=== PATIENT | male | born 1975 ===

== ENCOUNTER 2017-04-20 16:05 | Observation (INO) | payer OTHER ==
[2017-04-20] MEDS ORDERED: Nitroglycerin 2% Ointment Foilpak UD TOP STA (16:50)
[2017-04-20] MEDS ORDERED: Aspirin 325 mg EC Tablets PO STA (16:50)
--- NOTE | 2017-04-20 16:56 | C.PDOC ---
History Of Present Illness 41 year old male with no PMHx presents to the ER with a complaint of intermittent chest pressure for 1 week. Patient reports he had chest pressure today with dizziness, he went to the pharmacy where he checked his blood pressure; the pharmacist saw it was elevated and advised patient to see his doctor which prompted ER visit. Denies SOB, nausea, vomiting, or other associated symptoms. Time Seen by Provider: 04/20/17 16:43 Chief Complaint (Nursing): Chest Pain History Per: Patient History/Exam Limitations: no limitations Onset/Duration Of Symptoms: Days, Intermittent Episodes Current Symptoms Are (Timing): Still Present Quality: Pressure Associated Symptoms: denies: Nausea, Dyspnea, Diaphoresis, Syncope Modifying Factors: None Exacerbating Factors: None Alleviating Factors: Rest Recent travel outside of the [place]: No Past Medical History Reviewed: Historical Data, Nursing Documentation, Vital Signs Vital Signs: Last Vital Signs Temp 99.5 F 04/20/17 16:18 Pulse 70 04/20/17 17:44 Resp 12 04/20/17 17:44 BP 112/70 04/20/17 17:44 Pulse Ox 99 04/20/17 18:08 - Medical History PMH: No Chronic Diseases Surgical History: No Surg Hx Family History: States: Unknown Family Hx - Social History Hx Alcohol Use: No Hx Substance Use: No - Immunization History Hx Tetanus Toxoid Vaccination: No Hx Influenza Vaccination: No Hx Pneumococcal Vaccination: No Review Of Systems Except As Marked, All Systems Reviewed And Found Negative. Constitutional: Negative for: Fever, Chills Cardiovascular: Positive for: Chest Pain. Negative for: Palpitations Respiratory: Negative for: Shortness of Breath Gastrointestinal: Negative for: Nausea, Vomiting Musculoskeletal: Negative for: Neck Pain, Arm Pain Neurological: Negative for: Weakness, Numbness Physical Exam - Physical Exam Appears: Non-toxic, No Acute Distress Skin: Normal Color, Warm, Dry Head: Atraumatic, Normacephalic Oral Mucosa: Moist Chest: Symmetrical, No Tenderness Cardiovascular: Rhythm Regular, Other (BP 135/70) Respiratory: Normal Breath Sounds, No Accessory Muscle Use Gastrointestinal/Abdominal: Soft, No Tenderness Neurological/Psych: Oriented x3, Normal Speech, Normal Cognition ED Course And Treatment - Laboratory Results Result Diagrams: 04/20/17 17:00 04/20/17 17:00 ECG: Interpreted By Me, Viewed By Me ECG Rhythm: Sinus Rhythm ECG Interpretation: Normal Rate From EC O2 Sat by Pulse Oximetry: 99 (Room air) Pulse Ox Interpretation: Normal - Radiology CXR: Interpreted by Me CXR Interpretation: Yes: No Acute Disease Reevaluation Time: 17:59 Reassessment Condition: Improved (FEELS BETTER SP NG. VSS) - Physician Consult Information Time Consulting Physician Contacted: 17:59 Physician Contacted: Radha Hodges Progress - Re-Evaluation Re-evaluation Note: 04/20/17 18:06 PT NOW STATES DOES NOT WISH ADMISSION. @ BEDSIDE. RISKS/BENEFITS EXPLAINED. PT VERBALIZES UNDERSTANDING OF RISKS OF LEAVING INCLUDING DISABILITY , DETERIORATION AND . PT AND FAMILY WISHES AMA. 04/20/17 18:15 PT NOW WISHES ADMISSION. - Data Reviewed Data Reviewed: Lab, Diagnostic imaging, EKG, Old records Medical Decision Making Medical Decision Making: Plan: * EKG * Blood work * CXR * Aspirin * Nitro-bid * Tylenol Disposition Counseled Patient/Family Regarding: Studies Performed, Diagnosis - Disposition Disposition: HOSPITALIZED Disposition Time: 18:15 Condition: STABLE Additional Instructions: YOU HAVE BEEN OFFERED FOR ADMISSION FOR WORSENING CHEST PAIN. YOU HAVE EXPRESSED UNDERSTANDING OF THE RISKS OF LEAVING INCLUDING DISABILITY, DETERIORATION AND . SEE YOUR PMD MAC. Instructions: Chest Pain (ED), Against Medical Advice (ED) Forms: [facility] (Georgian) - POA Present On Arrival: None - Clinical Impression Clinical Impression: Chest pain - Scribe Statement The provider has reviewed the documentation as recorded by the Scribe Erik Austin All medical record entries made by the Scribe were at my direction and personally dictated by me. I have reviewed the chart and agree that the record accurately reflects my personal performance of the history, physical exam, medical decision making, and the department course for this patient. I have also personally directed, reviewed, and agree with the discharge instructions and disposition. Decision To Admit - Pt Status Changed To: Hospital Disposition Of: Observation - . Bed Request Type: Telemetry Admitting Physician: Radha Hodges Patient Diagnosis: Chest pain
[2017-04-20] MEDS ORDERED: Nitroglycerin 2% Ointment Foilpak UD TOP ONE (17:03)
[2017-04-20 17:07] LABS: EOS % 0.6 % (0.0-4.0); HEMATOCRIT 43.1 % (35.0-51.0); LYMPH # 1.7 K/uL (1.0-4.3); LYMPH % 43.8 % (20.0-40.0); MEAN CELL VOLUME 85.6 fL (80.0-94.0); MEAN CORPUSCULAR HEMOGLOBIN 28.8 pg (27.0-31.0); MEAN CORPUSCULAR HGB CONC 33.6 g/dL (33.0-37.0); MEAN PLATELET VOLUME 9.5 fL (7.2-11.7); MONO # 0.3 K/uL (0.0-0.8); MONO % 6.6 % (0.0-10.0); NRBC % 0.1 % (0.0-2.0); RED CELL DISTRIBUTION WIDTH 13.1 % (11.5-14.5); WHITE BLOOD COUNT 3.8 K/uL (4.8-10.8)
[2017-04-20 17:16] LABS: CHLORIDE 95 mmol/L (98-107)
[2017-04-20 17:17] LABS: POTASSIUM 4.3 mmol/L (3.6-5.2); SODIUM 135 mmol/L (132-148)
--- NOTE | 2017-04-20 17:18 | RAD ---
HISTORY: chest pain COMPARISON: None available. TECHNIQUE: Chest PA and lateral FINDINGS: LUNGS: No focal consolidation. Please note that chest x-ray has limited sensitivity for the detection of pulmonary masses. PLEURA: No significant pleural effusion identified. No definite pneumothorax . CARDIOVASCULAR: Heart size appears within normal limits. OSSEOUS STRUCTURES: No acute osseous abnormality identified. VISUALIZED UPPER ABDOMEN: Unremarkable. OTHER FINDINGS: None. IMPRESSION: No focal consolidation, significant pleural effusion, or definite pneumothorax identified.
[2017-04-20 17:19] LABS: ALB/GLOB RATIO 1.3 (1.0-2.1); AST/SGOT 25 U/L (17-59); BILIRUBIN,TOTAL 0.6 mg/dL (0.2-1.3); CARBON DIOXIDE 29 mmol/L (22-30); GFR AFRICAN-AMERICAN > 60; TOTAL PROTEIN 7.9 g/dL (6.3-8.3)
[2017-04-20 17:20] LABS: ALKALINE PHOSPHATASE 41 U/L (38-126); ALT/SGPT 30 U/L (21-72); BLOOD UREA NITROGEN 13 mg/dL (9-20); CALCIUM 9.2 mg/dl (8.6-10.4); GLUCOSE,RANDOM 91 mg/dL (75-110)
--- NOTE | 2017-04-20 18:50 | CP.PCM.HP ---
<Kevin Lopes - Last Filed: 04/20/17 18:43> History of Present Illness - History of Present Illness History of Present Illness: CC: chest pain HPI: 41M PMHx possible anxiety presented with chest pain. 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 Pt also has associated lightheadedness and pain not associated with food. Pt said he went to a pharmacy and was told by the pharmacist that his pressure is high and should see a doctor. Pt said he frequently makes 14+ hour drive trips without rest. Pt said resting makes the pain better and cannot really identify a trigger. Pt said he has anxiety attacks and last happened 3 years ago but does not take anything. Currently denies chest pain, SOB, palpitations, headache, lightheadedness, n/v, constipation, diarrhea. NKDA PMHx: possible anxiety attacks PSHx: none FMHx: reviewed and not contributory Social: denied ETOH, drugs or tobacco. Present on Admission - Present on Admission Any Indicators Present on Admission: No Review of Systems - Constitutional Constitutional: absent: Anorexia, Headache, Weakness - EENT Eyes: absent: Change in Vision - Cardiovascular Cardiovascular: Chest Pain, Chest Pain with Activity. absent: Dyspnea, Leg Edema, Leg Ulcers - Respiratory Respiratory: absent: Cough, Dyspnea - Gastrointestinal Gastrointestinal: absent: Abdominal Pain, Constipation, Diarrhea, Nausea, Vomiting - Genitourinary Genitourinary: absent: Dysuria, Pyuria - Musculoskeletal Musculoskeletal: absent: Back Pain, Joint Swelling - Integumentary Integumentary: absent: New Lesions Past Patient History - Past Social History Smoking Status: Never Smoked - PSYCHIATRIC Hx Substance Use: No - SURGICAL HISTORY Hx Surgeries: No - ANESTHESIA Hx Anesthesia: No Meds Allergies/Adverse Reactions: Allergies Allergy/AdvReac Type Severity Reaction Status Date / Time No Known Allergies Allergy Verified 04/20/17 16:26 Physical Exam - Constitutional Appears: Non-toxic, No Acute Distress - Head Exam Head Exam: NORMAL INSPECTION, NORMOCEPHALIC - Eye Exam Eye Exam: Normal appearance Pupil Exam: NORMAL ACCOMODATION - ENT Exam ENT Exam: Mucous Membranes Moist - Respiratory Exam Respiratory Exam: Clear to Auscultation Bilateral, NORMAL BREATHING PATTERN. absent: Rhonchi, Wheezes - Cardiovascular Exam Cardiovascular Exam: REGULAR RHYTHM, +S1, +S2. absent: Gallop, Rubs - GI/Abdominal Exam GI & Abdominal Exam: Normal Bowel Sounds, Soft. absent: Tenderness - Extremities Exam Extremities exam: Negative for: pedal edema - Neurological Exam Neurological exam: Alert, Oriented x3 - Psychiatric Exam Psychiatric exam: Normal Mood - Skin Skin Exam: Intact Results - Vital Signs Recent Vital Signs: Last Vital Signs Temp 99.5 F 04/20/17 16:18 Pulse 70 04/20/17 17:44 Resp 12 04/20/17 17:44 BP 112/70 04/20/17 17:44 Pulse Ox 99 04/20/17 18:15 - Labs Result Diagrams: 04/20/17 17:00 04/20/17 17:00 Labs: Laboratory Results - last 24 hr 04/20/17 04/20/17 17:00 17:00 WBC 3.8 L RBC 5.04 Hgb 14.5 Hct 43.1 MCV 85.6 MCH 28.8 MCHC 33.6 RDW 13.1 Plt Count 182 MPV 9.5 Neut % (Auto) 48.0 L Lymph % (Auto) 43.8 H Ward % (Auto) 6.6 Eos % (Auto) 0.6 Baso % (Auto) 1.0 Neut # 1.8 Lymph # 1.7 Ward # 0.3 Eos # 0.0 Baso # 0.0 Sodium 135 Potassium 4.3 Chloride 95 L Carbon Dioxide 29 Anion Gap 15 BUN 13 Creatinine 0.9 Est GFR ( Amer) > 60 Est GFR (Non-Af Amer) > 60 Random Glucose 91 Calcium 9.2 Total Bilirubin 0.6 AST 25 ALT 30 Alkaline Phosphatase 41 Troponin I < 0.0120 Total Protein 7.9 Albumin 4.5 Globulin 3.4 Albumin/Globulin Ratio 1.3 Assessment & Plan - Assessment and Plan (Free Text) Assessment: Chest pain Admit to tele. EKG showed NSR @ 99 bpm. First troponin negative. ASA 81mg PO daily. Toradol PRN for moderate pain. F/U SESAR x2. F/U D dimer, will obtain CT angio if positive. F/U TSH. F/U A1c. F/U lipid panel. F/U UDS. Prophylactic measure Pepcid, Lovenox. <Radha Hodges V - Last Filed: 04/20/17 22:38> Results - Vital Signs Recent Vital Signs: Last Vital Signs Temp 98.0 F 04/20/17 19:39 Pulse 80 04/20/17 19:39 Resp 18 04/20/17 19:39 BP 116/77 04/20/17 19:39 Pulse Ox 98 04/20/17 19:39 - Labs Result Diagrams: 04/20/17 17:00 04/20/17 17:00 Labs: Laboratory Results - last 24 hr 04/20/17 04/20/17 04/20/17 17:00 17:00 17:00 WBC 3.8 L RBC 5.04 Hgb 14.5 Hct 43.1 MCV 85.6 MCH 28.8 MCHC 33.6 RDW 13.1 Plt Count 182 MPV 9.5 Neut % (Auto) 48.0 L Lymph % (Auto) 43.8 H Ward % (Auto) 6.6 Eos % (Auto) 0.6 Baso % (Auto) 1.0 Neut # 1.8 Lymph # 1.7 Ward # 0.3 Eos # 0.0 Baso # 0.0 D-Dimer, Quantitative Sodium 135 Potassium 4.3 Chloride 95 L Carbon Dioxide 29 Anion Gap 15 BUN 13 Creatinine 0.9 Est GFR ( Amer) > 60 Est GFR (Non-Af Amer) > 60 Random Glucose 91 Calcium 9.2 Total Bilirubin 0.6 AST 25 ALT 30 Alkaline Phosphatase 41 Troponin I < 0.0120 NT-Pro-B Natriuret Pep 14.1 Total Protein 7.9 Albumin 4.5 Globulin 3.4 Albumin/Globulin Ratio 1.3 Triglycerides 133 Cholesterol 199 LDL Cholesterol Direct 143 H HDL Cholesterol 35 TSH 3rd Generation 0.97 04/20/17 20:02 WBC RBC Hgb Hct MCV MCH MCHC RDW Plt Count MPV Neut % (Auto) Lymph % (Auto) Ward % (Auto) Eos % (Auto) Baso % (Auto) Neut # Lymph # Ward # Eos # Baso # D-Dimer, Quantitative < 200 Sodium Potassium Chloride Carbon Dioxide Anion Gap BUN Creatinine Est GFR ( Amer) Est GFR (Non-Af Amer) Random Glucose Calcium Total Bilirubin AST ALT Alkaline Phosphatase Troponin I NT-Pro-B Natriuret Pep Total Protein Albumin Globulin Albumin/Globulin Ratio Triglycerides Cholesterol LDL Cholesterol Direct HDL Cholesterol TSH 3rd Generation Attending/Attestation - Attestation I have personally seen and examined this patient.: Yes I have fully participated in the care of the patient.: Yes I have reviewed all pertinent clinical information: Yes Notes (Text): Patient seen, examined, and case discussed with day-time resident. patient seen, examined, in [facility] Bed 1 on 04/20/17 at approximately 6:15PM. Patient hesitant on staying because he has no insurance; however patient with understands if he has chest pain, he recommended to be evaluated by a doctor and patient understands risk and benefits of leaving against medical advice but opts to stay in the hospital. Patient reporting chest pain daily for the past week. Patient denies prior cardiac history and denies cardiac risk factors. 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 patient denies caffeine use. patient denies drug use. Patient reports history of panic attacks. Assessment/Plan 1) Chest pain * Observe to tele. * EKG showed NSR @ 99 bpm. * First troponin negative. * ASA 81mg PO daily. * Toradol PRN for moderate pain. * F/U SESAR x2, Q 6hours and EKGs * F/U D dimer, will obtain CT angio if positive. * F/U TSH. * F/U A1c. * F/U lipid panel. * F/U UDS * echocardiogram ordered 2) Prophylactic measure * Pepcid 20mg PO bid for GI ppx * Lovenox 40mg subq daily for DVT ppx.
[2017-04-20 20:50] LABS: THYROID STIMULATING HORMONE 0.97 mIU/L (0.46-4.68)
[2017-04-21 01:30] VITALS: RESP 20
[2017-04-21 04:40] VITALS: O2SAT 97
[2017-04-21 08:22] LABS: BASO % 0.2 % (0.0-2.0); EOS % 1.1 % (0.0-4.0); HEMATOCRIT 41.5 % (35.0-51.0); LYMPH # 2.5 K/uL (1.0-4.3); LYMPH % 56.9 % (20.0-40.0); MEAN CELL VOLUME 85.2 fL (80.0-94.0); MEAN CORPUSCULAR HEMOGLOBIN 28.6 pg (27.0-31.0); MEAN CORPUSCULAR HGB CONC 33.5 g/dL (33.0-37.0); MEAN PLATELET VOLUME 9.6 fL (7.2-11.7); MONO # 0.3 K/uL (0.0-0.8); MONO % 7.3 % (0.0-10.0); NRBC % 0.1 % (0.0-2.0); WHITE BLOOD COUNT 4.4 K/uL (4.8-10.8)
[2017-04-21 08:26] VITALS: BP 114/76; PULSE 61; TEMP 98
[2017-04-21 08:33] LABS: CHLORIDE 100 mmol/L (98-107); POTASSIUM 4.2 mmol/L (3.6-5.2); SODIUM 134 mmol/L (132-148)
[2017-04-21 08:35] LABS: ALB/GLOB RATIO 1.2 (1.0-2.1); ALKALINE PHOSPHATASE 37 U/L (38-126); AST/SGOT 22 U/L (17-59); BILIRUBIN,TOTAL 0.6 mg/dL (0.2-1.3); BLOOD UREA NITROGEN 14 mg/dL (9-20); CARBON DIOXIDE 24 mmol/L (22-30); CHOLESTEROL 178 mg/dL (0-199); GFR AFRICAN-AMERICAN > 60
[2017-04-21 08:36] LABS: ALT/SGPT 30 U/L (21-72); CALCIUM 8.7 mg/dl (8.6-10.4); GLUCOSE,RANDOM 88 mg/dL (75-110)
[2017-04-21 09:13] LABS: THYROID STIMULATING HORMONE 1.27 mIU/L (0.46-4.68)
[2017-04-21] MEDS ORDERED: Enoxaparin 40 mg Syringe SC SCH (10:00)
--- NOTE | 2017-04-21 14:08 | CP.PCM.DIS ---
<Maya Marie - Last Filed: 04/21/17 14:04> Provider - Provider Date of Admission: 04/20/17 18:14 Attending physician: Radha Hodges DO Time Spent in preparation of Discharge (in minutes): 55 Hospital Course - Lab Results Lab Results: Most Recent Lab Values WBC 4.4 K/uL (4.8-10.8) L 04/21/17 08:10 RBC 4.87 Mil/uL (4.40-5.90) 04/21/17 08:10 Hgb 13.9 g/dL (12.0-18.0) 04/21/17 08:10 Hct 41.5 % (35.0-51.0) 04/21/17 08:10 MCV 85.2 fL (80.0-94.0) 04/21/17 08:10 MCH 28.6 pg (27.0-31.0) 04/21/17 08:10 MCHC 33.5 g/dL (33.0-37.0) 04/21/17 08:10 RDW 13.0 % (11.5-14.5) 04/21/17 08:10 Plt Count 166 K/uL (130-400) 04/21/17 08:10 MPV 9.6 fL (7.2-11.7) 04/21/17 08:10 Neut % (Auto) 34.5 % (50.0-75.0) L 04/21/17 08:10 Lymph % (Auto) 56.9 % (20.0-40.0) H 04/21/17 08:10 [place] % (Auto) 7.3 % (0.0-10.0) 04/21/17 08:10 Eos % (Auto) 1.1 % (0.0-4.0) 04/21/17 08:10 Baso % (Auto) 0.2 % (0.0-2.0) 04/21/17 08:10 Neut # 1.5 K/uL (1.8-7.0) L 04/21/17 08:10 Lymph # 2.5 K/uL (1.0-4.3) 04/21/17 08:10 [place] # 0.3 K/uL (0.0-0.8) 04/21/17 08:10 Eos # 0.0 K/uL (0.0-0.7) 04/21/17 08:10 Baso # 0.0 K/uL (0.0-0.2) 04/21/17 08:10 D-Dimer, Quantitative < 200 ng/mlDDU (0-243) 04/20/17 20:02 Sodium 134 mmol/L (132-148) 04/21/17 08:10 Potassium 4.2 mmol/L (3.6-5.2) 04/21/17 08:10 Chloride 100 mmol/L (98-107) 04/21/17 08:10 Carbon Dioxide 24 mmol/L (22-30) 04/21/17 08:10 Anion Gap 15 (10-20) 04/21/17 08:10 BUN 14 mg/dL (9-20) 04/21/17 08:10 Creatinine 0.9 mg/dL (0.8-1.5) 04/21/17 08:10 Est GFR ( Amer) > 60 04/21/17 08:10 Est GFR (Non-Af Amer) > 60 04/21/17 08:10 Random Glucose 88 mg/dL (75-110) 04/21/17 08:10 Hemoglobin A1c 5.8 % (4.2-6.5) 04/20/17 20:02 Calcium 8.7 mg/dl (8.6-10.4) 04/21/17 08:10 Total Bilirubin 0.6 mg/dL (0.2-1.3) 04/21/17 08:10 AST 22 U/L (17-59) 04/21/17 08:10 ALT 30 U/L (21-72) 04/21/17 08:10 Alkaline Phosphatase 37 U/L (38-126) L 04/21/17 08:10 Total Creatine Kinase 75 U/L (55-170) 04/21/17 08:10 CK-MB (Mass) 0.45 ng/mL (0.0-3.38) 04/21/17 08:10 Troponin I < 0.0120 ng/mL (0.00-0.120) 04/20/17 17:00 Troponin I, Quant < 0.0120 ng/mL (0.00-0.120) 04/21/17 08:10 NT-Pro-B Natriuret Pep 14.1 pg/mL (0-450) 04/20/17 17:00 Total Protein 7.0 g/dL (6.3-8.3) 04/21/17 08:10 Albumin 3.9 g/dL (3.5-5.0) 04/21/17 08:10 Globulin 3.1 gm/dL (2.2-3.9) 04/21/17 08:10 Albumin/Globulin Ratio 1.2 (1.0-2.1) 04/21/17 08:10 Triglycerides 127 mg/dL (0-149) 04/21/17 08:10 Cholesterol 178 mg/dL (0-199) 04/21/17 08:10 LDL Cholesterol Direct 131 mg/dL (0-129) H 04/21/17 08:10 HDL Cholesterol 30 mg/dL (30-70) 04/21/17 08:10 Free T4 0.86 ng/dL (0.78-2.19) 04/21/17 08:10 TSH 3rd Generation 1.27 mIU/L (0.46-4.68) 04/21/17 08:10 Urine Opiates Screen Negative (NEGATIVE) 04/21/17 07:24 Urine Methadone Screen Negative (NEGATIVE) 04/21/17 07:24 Ur Barbiturates Screen Negative (NEGATIVE) 04/21/17 07:24 Ur Phencyclidine Scrn Negative (NEGATIVE) 04/21/17 07:24 Ur Amphetamines Screen Negative (NEGATIVE) 04/21/17 07:24 U Benzodiazepines Scrn Negative (NEGATIVE) 04/21/17 07:24 U Oth Cocaine Metabols Negative (NEGATIVE) 04/21/17 07:24 U Cannabinoids Screen Negative (NEGATIVE) 04/21/17 07:24 - Hospital Course Hospital Course: Upon Admission: CC: chest pain HPI: 41M PMHx possible anxiety presented with chest pain. 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 Pt also has associated lightheadedness and pain not associated with food. Pt said he went to a pharmacy and was told by the pharmacist that his pressure is high and should see a doctor. Pt said he frequently makes 14+ hour drive trips without rest. Pt said resting makes the pain better and cannot really identify a trigger. Pt said he has anxiety attacks and last happened 3 years ago but does not take anything. Currently denies chest pain, SOB, palpitations, headache, lightheadedness, n/v, constipation, diarrhea. NKDA PMHx: possible anxiety attacks PSHx: none FMHx: reviewed and not contributory Social: denied ETOH, drugs or tobacco. Throughout Hospital Course: Patient was admitted for chest pain. All cardiac worked up was negative, EKGs were normal, all labwork was WNL, except his HGA1C which was 5.8. Patient's HR was normal on telemetry strips. Patient advised to limit caffeine, coffee, and sugary drinks and food. Patient is to follow up with [facility] to establish care. Patient will be called if any abnormal findings noted on ECHO. Please review EMR for the full record, this is a brief summary of the patient's hospital course. Discharge Exam - Additional Findings Additional findings: - Constitutional Appears: Non-toxic, No Acute Distress - Head Exam Head Exam: NORMAL INSPECTION, NORMOCEPHALIC - Eye Exam Eye Exam: Normal appearance Pupil Exam: NORMAL ACCOMODATION - ENT Exam ENT Exam: Mucous Membranes Moist - Respiratory Exam Respiratory Exam: Clear to Auscultation Bilateral, NORMAL BREATHING PATTERN. absent: Rhonchi, Wheezes - Cardiovascular Exam Cardiovascular Exam: REGULAR RHYTHM, +S1, +S2. absent: Gallop, Rubs - GI/Abdominal Exam GI & Abdominal Exam: Normal Bowel Sounds, Soft. absent: Tenderness - Extremities Exam Extremities exam: Negative for: pedal edema - Neurological Exam Neurological exam: Alert, Oriented x3 - Psychiatric Exam Psychiatric exam: Normal Mood - Skin Skin Exam: Intact Discharge Plan - Follow Up Plan Condition: STABLE Disposition: HOME/ ROUTINE Instructions: Chest Pain (DC), Heart Healthy Diet (DC) Additional Instructions: As per Dr. Hodges, patient is safe for discharge. He is to follow up with the [facility] in 1 week. Recommended to take aspirin 81mg by mouth daily, which can be bought over the counter. Please report to the ED if your symptoms worsen or return. Referrals: [facility] [Outside] <Radha Hodges V - Last Filed: 04/21/17 22:03> Provider - Provider Date of Admission: 04/20/17 18:14 Attending physician: Radha Hodges, [facility] Course - Lab Results Lab Results: Most Recent Lab Values WBC 4.4 K/uL (4.8-10.8) L 04/21/17 08:10 RBC 4.87 Mil/uL (4.40-5.90) 04/21/17 08:10 Hgb 13.9 g/dL (12.0-18.0) 04/21/17 08:10 Hct 41.5 % (35.0-51.0) 04/21/17 08:10 MCV 85.2 fL (80.0-94.0) 04/21/17 08:10 MCH 28.6 pg (27.0-31.0) 04/21/17 08:10 MCHC 33.5 g/dL (33.0-37.0) 04/21/17 08:10 RDW 13.0 % (11.5-14.5) 04/21/17 08:10 Plt Count 166 K/uL (130-400) 04/21/17 08:10 MPV 9.6 fL (7.2-11.7) 04/21/17 08:10 Neut % (Auto) 34.5 % (50.0-75.0) L 04/21/17 08:10 Lymph % (Auto) 56.9 % (20.0-40.0) H 04/21/17 08:10 Calloway % (Auto) 7.3 % (0.0-10.0) 04/21/17 08:10 Eos % (Auto) 1.1 % (0.0-4.0) 04/21/17 08:10 Baso % (Auto) 0.2 % (0.0-2.0) 04/21/17 08:10 Neut # 1.5 K/uL (1.8-7.0) L 04/21/17 08:10 Lymph # 2.5 K/uL (1.0-4.3) 04/21/17 08:10 Calloway # 0.3 K/uL (0.0-0.8) 04/21/17 08:10 Eos # 0.0 K/uL (0.0-0.7) 04/21/17 08:10 Baso # 0.0 K/uL (0.0-0.2) 04/21/17 08:10 D-Dimer, Quantitative < 200 ng/mlDDU (0-243) 04/20/17 20:02 Sodium 134 mmol/L (132-148) 04/21/17 08:10 Potassium 4.2 mmol/L (3.6-5.2) 04/21/17 08:10 Chloride 100 mmol/L (98-107) 04/21/17 08:10 Carbon Dioxide 24 mmol/L (22-30) 04/21/17 08:10 Anion Gap 15 (10-20) 04/21/17 08:10 BUN 14 mg/dL (9-20) 04/21/17 08:10 Creatinine 0.9 mg/dL (0.8-1.5) 04/21/17 08:10 Est GFR ( Amer) > 60 04/21/17 08:10 Est GFR (Non-Af Amer) > 60 04/21/17 08:10 Random Glucose 88 mg/dL (75-110) 04/21/17 08:10 Hemoglobin A1c 5.8 % (4.2-6.5) 04/20/17 20:02 Calcium 8.7 mg/dl (8.6-10.4) 04/21/17 08:10 Total Bilirubin 0.6 mg/dL (0.2-1.3) 04/21/17 08:10 AST 22 U/L (17-59) 04/21/17 08:10 ALT 30 U/L (21-72) 04/21/17 08:10 Alkaline Phosphatase 37 U/L (38-126) L 04/21/17 08:10 Total Creatine Kinase 75 U/L (55-170) 04/21/17 08:10 CK-MB (Mass) 0.45 ng/mL (0.0-3.38) 04/21/17 08:10 Troponin I < 0.0120 ng/mL (0.00-0.120) 04/20/17 17:00 Troponin I, Quant < 0.0120 ng/mL (0.00-0.120) 04/21/17 08:10 NT-Pro-B Natriuret Pep 14.1 pg/mL (0-450) 04/20/17 17:00 Total Protein 7.0 g/dL (6.3-8.3) 04/21/17 08:10 Albumin 3.9 g/dL (3.5-5.0) 04/21/17 08:10 Globulin 3.1 gm/dL (2.2-3.9) 04/21/17 08:10 Albumin/Globulin Ratio 1.2 (1.0-2.1) 04/21/17 08:10 Triglycerides 127 mg/dL (0-149) 04/21/17 08:10 Cholesterol 178 mg/dL (0-199) 04/21/17 08:10 LDL Cholesterol Direct 131 mg/dL (0-129) H 04/21/17 08:10 HDL Cholesterol 30 mg/dL (30-70) 04/21/17 08:10 Free T4 0.86 ng/dL (0.78-2.19) 04/21/17 08:10 TSH 3rd Generation 1.27 mIU/L (0.46-4.68) 04/21/17 08:10 Urine Opiates Screen Negative (NEGATIVE) 04/21/17 07:24 Urine Methadone Screen Negative (NEGATIVE) 04/21/17 07:24 Ur Barbiturates Screen Negative (NEGATIVE) 04/21/17 07:24 Ur Phencyclidine Scrn Negative (NEGATIVE) 04/21/17 07:24 Ur Amphetamines Screen Negative (NEGATIVE) 04/21/17 07:24 U Benzodiazepines Scrn Negative (NEGATIVE) 04/21/17 07:24 U Oth Cocaine Metabols Negative (NEGATIVE) 04/21/17 07:24 U Cannabinoids Screen Negative (NEGATIVE) 04/21/17 07:24 Attending/Attestation - Attestation I have personally seen and examined this patient.: Yes I have fully participated in the care of the patient.: Yes I have reviewed all pertinent clinical information, including history, physical exam and plan: Yes Notes (Text): Patient seen, examined, and case discussed with day-time resident. patient seen this afternoon with at bedside. Patient denies acute complaints. SESAR X3: negative. EKG shows NSR. Thyroid studies within normal. Patient advised diet modifications and exercise modification in regards to mildly elevated LDL and to encourage increase in HDL. Patient advised he does have impaired glucose tolerance, formerly known as prediabetics, advised he does not want to become an overt diabetic which will increase his risk for other unwanted sequela including heart attack. Patient advised he needs to practice good sleep hygiene in light of his job, decrease caffeine, soda, and get adequate hours of sleep. Patient advised to establish care in the [facility] and to follow-up after hospitalization. Patient advised to take baby aspirin as prophylactic care. patient recommended to follow-up with [facility] to follow-up for his anxiety. Patient has completed echocardiogram; final report not available at time of discharge. Patient is medically stable for discharge. Discussed discharge order and instructions with resident and patient at bedside. Discharge diagnoses: 1) Chest pain--Resolved * Observe to tele. * EKG showed NSR @ 99 bpm. * SESAR X3: negative * ASA 81mg PO daily. * Toradol PRN for moderate pain * D-dimer: negative * TSH: within normal limits 2) Impaired glucose tolerance-->Chronic * a1c: 5.8 * Repeat in one year to prevent overt diabetes * Lifestyle modifications including diet and exercise 3) Low HDL * Lifestyle modifications including diet and exercise 4) Prophylactic measure * Pepcid 20mg PO bid for GI ppx * Lovenox 40mg subq daily for DVT ppx.
--- NOTE | 2017-04-22 22:49 | CARD ---
APPROVED REPORT EKG Measurement Heart [id number] <Conclusion> Normal sinus rhythm Normal ECG
--- NOTE | 2017-04-23 21:27 | CARD ---
APPROVED REPORT EKG Measurement Heart [id number] <Conclusion> Normal sinus rhythm Normal ECG
== END 2017-04-21 16:01 | disposition home or self-care (01) ==
LOC: C.ER 16:05 → C.9E 18:14 → C.6T 18:53
PROVIDERS: ADMIT Hospitalist; ATTEND Hospitalist
DX: R07.89 Other chest pain (principal); F41.1 Generalized anxiety disorder
CPT/HCPCS: 36415; 71020; 80053; 80061; 80324; 80345; 80346; 80349; 80353; 80358; 80361; 83036; 83880; 83992; 84439; 84443; 84484; 85025; 85378; 93005; 93306; 96374; 99285; G0378; J1650; J1885